=== PATIENT | female | born 1935 | race African-American/Black ===

== ENCOUNTER → 2016-07-21 | Outpatient (CLI) | payer MEDICARE, OTHER ==
[~2016-07-21] MED LIST: ALDACTONE 25MG25 MG PO; ANTIVERT 25MG25 MG PO; B-12 500 MCG; DIABETIC VITAMIN PO; DIOVAN160 MG PO; EXFORGE 10 MG-31 TAB PO; EXFORGE 10/320 PO; EXFORGE PO; FISH OIL500 MG PO; FLAX OIL1000 MG; GABAPENTIN600 MG PO; GLIPIZIDE XL5 MG PO; GLIPIZIDE5 M1 PO; HCTZ 25MG25 MG PO; IRON325 MG PO; LOPRESSOR 550 MG/TAB PO; METOPROLOL50 MG PO; NORVASC 5MG5 MG/TAB PO; PHARMASSURE GA500 MG PO; POTASSIUM CH2 MEQ/ML PO; POTASSIUM CL 220 MEQ PO; TOPROL XL50 MG PO; TRAMADOL50 MG PO; TYLENOL 325MG325 MG PO; ULTRAM 50MG TAB50 MG; VALIUM 2MG T2 MG/TAB PO; VITAMIN C500 MG PO; VITAMIN D1000 IU PO; ZOFRAN4 M1 PO; ZOFRAN8 MG PO; [UNRECOGNIZED DRUG - OTHER]
== END ==
LOC: MC.RAD 14:15
DX: Z12.31 Encounter for screening mammogram for malignant neoplasm of breast (principal)

== ENCOUNTER 2016-10-01 21:26 | Emergency (ER) | payer MEDICARE, OTHER ==
[~2016-10-01] VITALS: Ht 152.4 cm; Wt 89.5 kg
[2016-10-01 21:34] VITALS: TEMP 97.3
[2016-10-01 21:59] LABS: BASO % 0.4 % (0.0-2.0); EOS # 0.1 (0.0-0.7); EOS % 2.4 % (0-4.0); GRAN # 3.1 (1.4-6.5); GRAN % 62.8 % (42.2-75.2); HEMATOCRIT 33.2 % (37.0-47.0); HEMOGLOBIN 11.1 g/dl (12.5-16.0); LYMPH # 1.2 (1.2-3.4); LYMPH % 24.7 % (20.0-51.0); MEAN CELL VOLUME 88 fl (80.0-100.0); MEAN CORPUSCULAR HEMOGLOBIN 30 pg (27.0-31.0); MEAN CORPUSCULAR HGB CONC 33 g/dl (33.0-37.0); MEAN PLATELET VOLUME 9.6 fl (7.4-10.4); MONO # 0.5 (0.1-0.6); MONO % 9.5 % (1.7-9.3); PLATELET COUNT 247 K/mm3 (130-400); RED BLOOD COUNT 3.76 M/mm3 (4.10-5.30); REDCELL DISTRIBUTION WIDTH-CV 13.3 % (11.5-14.5)
[2016-10-01 22:03] LABS: ADJUSTED CALCIUM 9.1 mg/dL (8.4-10.2); ALANINE AMINOTRANSFERASE 78 U/L (9-52); ALBUMIN 4.3 gm/dL (3.5-5.0); ALKALINE PHOSPHATASE 109 U/L (50-136); ANION GAP 13 mmol/L (7-16); BILIRUBIN,TOTAL 0.8 mg/dL (0.0-1.0); BLOOD UREA NITROGEN 19 mg/dL (7-17); CALCIUM 9.3 mg/dL (8.4-10.2); CARBON DIOXIDE 26 mmol/L (22-30); CHLORIDE 101 mmol/L (98-107); CREATININE, serum 0.89 mg/dL (0.52-1.25); GLUCOSE 150 mg/dL (74-106); INR 1.2 (0.8-3.0); LIPASE 66 U/L (23-300); POTASSIUM 4.3 mmol/L (3.4-5.0); PROTHROMBIN TIME 13.9 SECONDS (9.7-12.8); SODIUM 140 mmol/L (137-145); TOTAL PROTEIN 8.3 gm/dL (6.4-8.2)
[2016-10-01 22:14] LABS: TROPONIN-I < 0.012 ng/mL (0.000-0.034)
[2016-10-02 01:00] VITALS: BP 138/56; PULSE 56
== END 2016-10-02 01:00 | disposition home or self-care (01) ==
LOC: COL.ER 21:26
PROVIDERS: Emergency Medicine
DX: R10.13 Epigastric pain (principal); I10 Essential (primary) hypertension; E11.9 Type 2 diabetes mellitus without complications; Z79.84 Long term (current) use of oral hypoglycemic drugs; Z87.442 Personal history of urinary calculi; Z90.710 Acquired absence of both cervix and uterus; Z90.49 Acquired absence of other specified parts of digestive tract; Z98.890 Other specified postprocedural states
CPT/HCPCS: J2765; J3010

== ENCOUNTER → 2017-10-31 | Outpatient (CLI) | payer MEDICARE, OTHER ==
[~2017-10-31] MED LIST changes: +CLEOCIN HCL300 MG PO; +COZAAR100 MG PO; +FLORASTOR250 MG PO; +GLUCOTROL XL5 MG/TAB PO; +NEURONTIN600 MG/TAB PO; +PROBIOTIC ACID1 EAC3 PO; +TAMBOCOR50 MG PO; +TOPROL XL 25MG25 MG PO; +TOPROL XL100 MG PO; +ULTRAM 50MG TAB50 MG PO; +XARELTO10 MG PO
== END ==
LOC: MC.RAD 13:53
DX: Z12.31 Encounter for screening mammogram for malignant neoplasm of breast (principal); Z95.0 Presence of cardiac pacemaker

== ENCOUNTER 2017-12-24 21:11 | Emergency (ER) | payer MEDICARE, OTHER ==
[~2017-12-24] VITALS: Ht 152.4 cm; Wt 92.7 kg
[2017-12-24 21:19] VITALS: TEMP 97.7
[2017-12-24 21:53] LABS: BASO % 0.5 % (0.0-2.0); EOS # 0.2 (0.0-0.7); EOS % 5.8 % (0-4.0); GRAN % 47.8 % (42.2-75.2); HEMOGLOBIN 12.1 g/dl (12.5-16.0); LYMPH # 1.4 (1.2-3.4); LYMPH % 34.5 % (20.0-51.0); MEAN CELL VOLUME 90 fl (80.0-100.0); MEAN CORPUSCULAR HEMOGLOBIN 30 pg (27.0-31.0); MEAN CORPUSCULAR HGB CONC 33 g/dl (33.0-37.0); MEAN PLATELET VOLUME 9.4 fl (7.4-10.4); MONO # 0.5 (0.1-0.6); MONO % 11.4 % (1.7-9.3); PLATELET COUNT 263 K/mm3 (130-400); RED BLOOD COUNT 4.07 M/mm3 (4.10-5.30); REDCELL DISTRIBUTION WIDTH-CV 13.1 % (11.5-14.5)
[2017-12-24 21:56] LABS: HEMATOCRIT 36.8 % (37.0-47.0)
[2017-12-24] MEDS ORDERED: MICROZIDE12.5 MG PO (22:02)
[2017-12-24] MEDS ORDERED: NORVASC 5MG5 MG/TAB PO (22:02)
[2017-12-24 22:03] LABS: ALANINE AMINOTRANSFERASE 37 U/L (9-52); ALBUMIN 4.4 gm/dL (3.5-5.0); ALKALINE PHOSPHATASE 66 U/L (50-136); ANION GAP 8 mmol/L (7-16); AST,SGOT 32 U/L (15-37); BILIRUBIN,TOTAL 0.4 mg/dL (0.0-1.0); BLOOD UREA NITROGEN 14 mg/dL (7-17); CALCIUM 9.7 mg/dL (8.4-10.2); CARBON DIOXIDE 31 mmol/L (22-30); CHLORIDE 102 mmol/L (98-107); CREATININE, serum 0.75 mg/dL (0.52-1.25); GLUCOSE 147 mg/dL (74-106); POTASSIUM 4.3 mmol/L (3.4-5.0); SODIUM 141 mmol/L (137-145); TOTAL PROTEIN 8.7 gm/dL (6.4-8.2)
[2017-12-24 22:19] LABS: TROPONIN-I < 0.012 ng/mL (0.000-0.034)
[2017-12-24] MEDS ORDERED: VALIUM 2MG T2 MG/TAB PO (22:57)
[2017-12-24] MEDS ORDERED: PERCOCET 325 MG1 TA2 PO (23:30)
[2017-12-24] MEDS ORDERED: LIDODERM 5% PATC1 EA TP (23:36)
[2017-12-24 23:47] VITALS: BP 177/97; PULSE 70
== END 2017-12-24 23:47 | disposition home or self-care (01) ==
LOC: COL.ER 21:11
PROVIDERS: Emergency Medicine
DX: M25.512 Pain in left shoulder (principal)

== ENCOUNTER 2017-12-30 23:54 | Emergency (ER) | payer MEDICARE, OTHER ==
[~2017-12-30 23:54] MED LIST changes: +LIDODERM 5% PATC1 EA TP; +MICROZIDE12.5 MG PO; +PERCOCET 325 MG1 TA2 PO
[2017-12-30 23:59] VITALS: TEMP 98.4
[2017-12-31 00:42] LABS: BASO % 0.7 % (0.0-2.0); EOS # 0.3 (0.0-0.7); EOS % 6.3 % (0-4.0); GRAN % 43.1 % (42.2-75.2); HEMATOCRIT 35.4 % (37.0-47.0); HEMOGLOBIN 11.9 g/dl (12.5-16.0); LYMPH # 1.7 (1.2-3.4); LYMPH % 37.2 % (20.0-51.0); MEAN CELL VOLUME 90 fl (80.0-100.0); MEAN CORPUSCULAR HEMOGLOBIN 30 pg (27.0-31.0); MEAN CORPUSCULAR HGB CONC 34 g/dl (33.0-37.0); MEAN PLATELET VOLUME 9.3 fl (7.4-10.4); MONO # 0.6 (0.1-0.6); MONO % 12.5 % (1.7-9.3); PLATELET COUNT 263 K/mm3 (130-400); RED BLOOD COUNT 3.94 M/mm3 (4.10-5.30)
[2017-12-31 02:15] VITALS: BP 177/81; PULSE 60
== END 2017-12-31 02:21 | disposition home or self-care (01) ==
LOC: COL.ER 23:54
PROVIDERS: Emergency Medicine
DX: G58.8 Other specified mononeuropathies (principal); E11.22 Type 2 diabetes mellitus with diabetic chronic kidney disease; I12.9 Hypertensive chronic kidney disease with stage 1 through stage 4 chronic kidney disease, or unspecified chronic kidney disease; N18.9 Chronic kidney disease, unspecified; I48.91 Unspecified atrial fibrillation; Z90.710 Acquired absence of both cervix and uterus; Z90.49 Acquired absence of other specified parts of digestive tract; Z79.84 Long term (current) use of oral hypoglycemic drugs; Z95.0 Presence of cardiac pacemaker
CPT/HCPCS: J1170; J1885; J7512

== ENCOUNTER → 2018-01-15 | Outpatient (CLI) | payer MEDICARE, OTHER | LOC: COL.RAD 10:03 | DX: E11.9 Type 2 diabetes mellitus without complications (principal); M25.512 Pain in left shoulder; Z95.0 Presence of cardiac pacemaker | CPT/HCPCS: Q9967 ==

== ENCOUNTER 2018-03-12 13:45 | Outpatient (RCR) | payer MEDICARE, OTHER | END 2018-05-08 | disposition home or self-care (01) | LOC: MKS.ESL.PT | DX: S14.3XXD Injury of brachial plexus, subsequent encounter (principal); M75.42 Impingement syndrome of left shoulder; G62.9 Polyneuropathy, unspecified | CPT/HCPCS: G8984-GP; G8985-GP ==

== ENCOUNTER 2018-05-08 16:15 | Outpatient (RCR) | payer MEDICARE, OTHER | END 2018-06-14 11:35 | disposition home or self-care (01) | LOC: MKS.ESL.OT 16:15 | DX: M25.532 Pain in left wrist (principal) ==

== ENCOUNTER 2018-09-24 11:45 | Emergency (ER) | payer MEDICARE, OTHER ==
[~2018-09-24] VITALS: Ht 152.4 cm; Wt 91.8 kg
[2018-09-24 12:34] LABS: BASO % 0.8 % (0.0-2.0); EOS # 0.2 (0.0-0.7); GRAN # 2.1 (1.4-6.5); GRAN % 55.4 % (42.2-75.2); HEMOGLOBIN 10.9 g/dl (12.5-16.0); LYMPH # 1.2 (1.2-3.4); LYMPH % 30.3 % (20.0-51.0); MEAN CELL VOLUME 90 fl (80.0-100.0); MEAN CORPUSCULAR HEMOGLOBIN 29 pg (27.0-31.0); MEAN CORPUSCULAR HGB CONC 32 g/dl (33.0-37.0); MEAN PLATELET VOLUME 8.9 fl (7.4-10.4); MONO # 0.4 (0.1-0.6); MONO % 9.2 % (1.7-9.3); PLATELET COUNT 260 K/mm3 (130-400); RED BLOOD COUNT 3.73 M/mm3 (4.10-5.30); REDCELL DISTRIBUTION WIDTH-CV 13.2 % (11.5-14.5)
[2018-09-24 12:35] LABS: HEMATOCRIT 33.6 % (37.0-47.0)
[2018-09-24 12:48] LABS: ALBUMIN 3.7 gm/dL (3.5-5.0); BILIRUBIN,TOTAL 0.3 mg/dL (0.0-1.0); CALCIUM 9.1 mg/dL (8.4-10.2); CREATININE, serum 0.92 (0.52-1.25); POTASSIUM 3.9 mmol/L (3.4-5.0); TOTAL PROTEIN 7.4 gm/dL (6.4-8.2)
[2018-09-24 13:50] VITALS: BP 160/70; PULSE 59
== END 2018-09-24 14:15 | disposition home or self-care (01) ==
LOC: COL.ER 11:45
PROVIDERS: Emergency Medicine
DX: Z45.010 Encounter for checking and testing of cardiac pacemaker pulse generator [battery] (principal); I48.91 Unspecified atrial fibrillation; I10 Essential (primary) hypertension; E11.9 Type 2 diabetes mellitus without complications; Z79.84 Long term (current) use of oral hypoglycemic drugs

== ENCOUNTER → 2018-11-29 | Outpatient (CLI) | payer MEDICARE, OTHER | LOC: MC.RAD 13:40 | DX: Z12.31 Encounter for screening mammogram for malignant neoplasm of breast (principal) ==

== ENCOUNTER 2019-07-06 13:26 | Emergency (ER) | payer MEDICARE, OTHER ==
[~2019-07-06] VITALS: Ht 154.9 cm; Wt 90.5 kg
[2019-07-06 13:43] VITALS: TEMP 97.9
[2019-07-06 15:45] VITALS: BP 155/81; PULSE 64
== END 2019-07-06 15:50 | disposition home or self-care (01) ==
LOC: COL.ER 13:26
DX: S83.92XA Sprain of unspecified site of left knee, initial encounter (principal); E11.9 Type 2 diabetes mellitus without complications; I10 Essential (primary) hypertension; Z95.0 Presence of cardiac pacemaker; Z79.01 Long term (current) use of anticoagulants; Z79.84 Long term (current) use of oral hypoglycemic drugs; X50.1XXA Overexertion from prolonged static or awkward postures, initial encounter; Y92.009 Unspecified place in unspecified non-institutional (private) residence as the place of occurrence of the external cause
CPT/HCPCS: L1846

== ENCOUNTER → 2019-12-30 | Outpatient (CLI) | payer MEDICARE, OTHER | LOC: MC.RAD 12-24 13:45 | DX: Z12.31 Encounter for screening mammogram for malignant neoplasm of breast (principal) ==

== ENCOUNTER 2020-06-11 15:00 | Outpatient (RCR) | payer MEDICARE, OTHER | END 2020-06-11 17:23 | disposition home or self-care (01) | LOC: MKS.ESL.PT 15:00 | DX: R10.32 Left lower quadrant pain (principal) ==

== ENCOUNTER 2020-09-25 13:00 | Outpatient (RCR) | payer MEDICARE, OTHER | END 2020-11-09 | disposition home or self-care (01) | LOC: MKS.ESL.PT | DX: M25.511 Pain in right shoulder (principal); M25.512 Pain in left shoulder ==